=== PATIENT | female | born 1935 | race Caucasian/White ===

== ENCOUNTER 2022-03-19 16:27 | Emergency (ER) | payer MEDICARE ==
[~2022-03-19] VITALS: Ht 157.5 cm; Wt 54.0 kg
[~2022-03-19 16:27] MED LIST: ALBUTEROL SULF8.5 GM INH; ASPIRIN EC325 MG PO; ATORVASTATIN CA20 MG PO; B COMPLEX1 EACH PO; BREO ELLIPTA I1 EACH INH; COMBIVENT RESPIM4 GM INH; FLUCONAZOLE100 MG PO; LEVOFLOXACIN750 MG PO; LEVOTHYROXINE75 MCG PO; LEVOTHYROXINE88 MCG PO; MULTIVITAMINS1 EAC7 PO; PREDNISONE10 MG PO; PREDNISONE20 MG PO; PROVENTIL HFA6.7 GM INH; VITAMIN D310 MC4 PO; ZITHROMAX250 MG PO
[2022-03-19] MEDS ORDERED: LASIX20 MG PO (20:05)
--- NOTE | 2022-03-21 12:25 | EKG ---
[facility] [address] [place] [address] Signed Sinus tachycardia with occasional premature ventricular complexes Possible Left atrial enlargement Left anterior fascicular block Minimal voltage criteria for LVH, may be normal variant ( Somers product ) Lateral infarct , age undetermined Abnormal ECG No previous ECGs available Confirmed by Kailash Hall MD () on 03/21/2022 12:24:52 PM Electronically Signed By: KAILASH HALL MD 03/21/22 1225 PATIENT NAME: JACQUES CUBA Electrocardiogram DATE OF : [birth year] PHYSICIAN: KAILASH HALL MD REPORT #: [id number] REPORT IS CONFIDENTIAL AND NOT TO BE RELEASED WITHOUT AUTHORIZATION
== END 2022-03-19 20:20 | disposition home or self-care (01) ==
LOC: ED 16:27
DX: I50.9 Heart failure, unspecified (principal); J44.9 Chronic obstructive pulmonary disease, unspecified; F17.200 Nicotine dependence, unspecified, uncomplicated; Z79.899 Other long term (current) drug therapy; Z79.82 Long term (current) use of aspirin
CPT/HCPCS: 36415; 71045; 80053; 83735; 83880; 84484; 85025; 93005; 93010; 96374; 99284-25; J1940

== ENCOUNTER 2023-01-07 10:54 | Emergency (ER) | payer MEDICARE ==
[~2023-01-07 10:54] MED LIST changes: +LASIX20 MG PO
[2023-01-07 12:03] LABS: BASOPHILS 0.2 % (0-2); BILIRUBIN, URINE POSITIVE (negative); BLOOD/HGB, URINE TRACE-I (Negative); EOSINOPHILS 0.2 % (0-6); HEMATOCRIT 42.8 % (35.0-50.0); HEMOGLOBIN 14.4 g/dL (12.0-18.0); KETONE, URINE NEGATIVE (Negative); LEUK ESTERASE, URINE NEGATIVE (negative); LYMPHOCYTES 14.4 % (24-44); MCH 34.1 (27-36); MCHC 33.5 g/dl (30-36); MCV 101.7 fl (81-99); MONOCYTES 8.7 % (0-12); NEUTROPHILS 76.5 % (39-80); NITRITE, URINE NEGATIVE (negative); PH, URINE 5.5 (5-7); PLATELET COUNT 276 K/uL (140-440); RBC 4.21 M/ul (4.3-5.7); RDW 14.6 (10.5-15.0)
[2023-01-07 12:10] LABS: RED BLOOD CELLS, URINE 0-1 /hpf (0-5)
[2023-01-07 12:11] LABS: BACTERIA, URINE 2+ /hpf (negative); CASTS, URINE NONE SEEN \\lpf; COLLECTION TYPE, URINE CLEAN CATCH; CRYSTALS, URINE NONE SEEN (0-1+); EPITHELIAL CELLS, URINE SQUAMOUS 3+ /lpf (0-1+); REFLEX CULTURE, URINE No (No)
[2023-01-07 12:15] LABS: ALBUMIN 3.4 g/dL (3.4-5.0); ALBUMIN/GLOBULIN RATIO 0.92 (1.1-2.4); ANION GAP 9.3 (7-21); BILIRUBIN, TOTAL 0.9 ng/dL (0.2-1.0); BUN/CREATININE RATIO 8.33 (6.0-28.6); CREATININE, SERUM 0.96 mg/dL (0.55-1.02); POTASSIUM 4.3 mmol/L (3.5-5.1); PROTEIN, TOTAL 7.1 g/dL (6.4-8.2)
[2023-01-07 15:57] VITALS: BP 117/69
[2023-01-07 16:06] LABS: INR 1.03 (0.80-1.30)
--- NOTE | 2023-01-08 06:36 | EKG ---
[facility] [address] [facility] [place] [address] Signed Sinus rhythm with occasional premature ventricular complexes Left axis deviation Left ventricular hypertrophy with QRS widening ( Naman product , Romhilt-Rosado ) Nonspecific T wave abnormality premature ventricular complexes Left anterior fascicular block Abnormal ECG When compared with ECG of 19-MAR-2022 16:33, similar T wave abnormalities in precordial leads Confirmed by TORRES DAN MD ([id number]) on 01/08/2023 6:36:20 AM Electronically Signed By: TORRES DAN 01/08/23 0636 PATIENT NAME: JACQUES CUBA Electrocardiogram DATE OF : [birth year] PHYSICIAN: TORRES DAN REPORT #: [id number] REPORT IS CONFIDENTIAL AND NOT TO BE RELEASED WITHOUT AUTHORIZATION
== END 2023-01-07 15:59 | disposition home or self-care (01) ==
LOC: ED 10:54
PROVIDERS: Emergency Medicine
DX: R18.8 Other ascites (principal); I50.9 Heart failure, unspecified; J44.9 Chronic obstructive pulmonary disease, unspecified; E78.00 Pure hypercholesterolemia, unspecified; F17.200 Nicotine dependence, unspecified, uncomplicated; Z79.890 Hormone replacement therapy; Z79.899 Other long term (current) drug therapy; Z79.82 Long term (current) use of aspirin
CPT/HCPCS: 36415; 74177; 80053; 81001; 83690; 85025; 85610; 93005; 93010; 99284-25; Q9967

== ENCOUNTER 2023-01-11 09:06 | Emergency (ER) | payer MEDICARE ==
[~2023-01-11] VITALS: Ht 157.5 cm; Wt 52.9 kg
[2023-01-11] MEDS ORDERED: SPIRONOLACTONE50 MG PO (09:16)
[2023-01-11] MEDS ORDERED: METOPROLOL SUCC25 MG PO (09:17)
--- OUTSIDE RECORDS SUMMARY | 2023-01-11 09:18 | XMS ---
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 Roxie has no Care Guidelines for this patient. [facility] VISIT COUNT (12 MO.) [address] [facility] TOTAL 3 NOTE: Visits indicate total known visits. ED/[facility] VISIT TRACKING (12 MO.) 01/11/2023 09:[address] [facility] [place] TYPE: Emergency COMPLAINT: - SOB 01/07/2023 10:55 [facility] [place] TYPE: Emergency COMPLAINT: - BACK PAIN, L SHOULDER PAIN, BLOATING DIAGNOSES: - Abdominal distension (gaseous) - Chronic obstructive pulmonary disease, unspecified - Heart failure, unspecified - Hormone replacement therapy - halfway (current) use of aspirin - Nicotine dependence, unspecified, uncomplicated - Other ascites - Other skilled nursing (current) drug therapy - Pure hypercholesterolemia, unspecified 03/19/2022 16:28 [facility] [place] TYPE: Emergency COMPLAINT: - RT LEG SWELLING,POSS HIGH BP DIAGNOSES: - Chronic obstructive pulmonary disease, unspecified - Heart failure, unspecified - Localized swelling, mass and lump, right lower limb - termite exterminator helper (current) use of aspirin - Nicotine dependence, unspecified, uncomplicated - Other skilled nursing (current) drug therapy INPATIENT VISIT TRACKING (12 MO.) No inpatient visits to display in this time frame [email or web address]
[2023-01-11] MEDS ORDERED: K-TAB ER20 MEQ PO (12:00)
[2023-01-11] MEDS ORDERED: LASIX20 MG PO (12:00)
[2023-01-11 12:16] VITALS: BP 111/65
[2023-01-11 12:51] LABS: APPEARANCE, BODY FLUID PALE YELLOW; SOURCE, BODY FLUID PERITONEAL
[2023-01-11 12:55] LABS: MONONUCLEAR CELLS, BODY FLUID 49; PMNS, BODY FLUID 51
== END 2023-01-11 12:17 | disposition home or self-care (01) ==
LOC: ED 09:06
PROVIDERS: Emergency Medicine
DX: R18.8 Other ascites (principal); I50.9 Heart failure, unspecified; J44.9 Chronic obstructive pulmonary disease, unspecified; F17.200 Nicotine dependence, unspecified, uncomplicated; Z79.890 Hormone replacement therapy; Z79.899 Other long term (current) drug therapy
CPT/HCPCS: 49083; 89051

== ENCOUNTER 2023-11-08 17:19 | Emergency (ER) | payer MEDICARE ==
[~2023-11-08] VITALS: Ht 157.5 cm; Wt 55.4 kg
[~2023-11-08 17:19] MED LIST changes: +ACETAMINOPHEN500 MG PO; +ATIVAN0.5 MG PO; +IBUPROFEN600 MG PO; +K-TAB ER20 MEQ PO; +METOPROLOL SUCC25 MG PO; +ONDANSETRON ODT4 MG PO; +OXYCODON-ACETA1 EAC2 PO; +SPIRONOLACTONE50 MG PO
[2023-11-08] MEDS ORDERED: DIPHTH,PERTUSS(ACELL),TET VAC 0.5 ML SYRINGE IM ONE (17:30)
[2023-11-08] MEDS ORDERED: fentaNYL citrate 100 MCG/2 ML VIAL IV PRN (17:30)
[2023-11-08 17:33] LABS: BASOPHILS 0.4 % (0-2); EOSINOPHILS 0.4 % (0-6); HEMATOCRIT 25.3 % (35.0-50.0); HEMOGLOBIN 8.6 g/dL (12.0-18.0); LYMPHOCYTES 44.9 % (24-44); MCH 41.6 (27-36); MCV 122.3 fl (81-99); MONOCYTES 9.5 % (0-12); NEUTROPHILS 44.8 % (39-80); PLATELET COUNT 176 K/uL (140-440); RBC 2.07 M/ul (4.3-5.7); RDW 20.8 (10.5-15.0)
[2023-11-08 17:49] LABS: ALBUMIN 3.6 g/dL (3.4-5.0); ALBUMIN/GLOBULIN RATIO 1.29 (1.1-2.4); ALCOHOL, MEDICAL <3 ng/dL (<3); ALKALINE PHOSPHATASE 89 U/L (46-116); ALT (SGPT) 18 U/L (14-59); ANION GAP 10.5 (7-21); AST (SGOT) 17 U/L (15-37); BILIRUBIN, TOTAL 0.8 ng/dL (0.2-1.0); CARBON DIOXIDE 31 mmol/L (21-32); CHLORIDE 100 mmol/L (98-107); CREATININE, SERUM 1.47 mg/dL (0.55-1.02); GLOMERULAR FILTRATION RATE,EST 34 mL/min (>60); POTASSIUM 4.5 mmol/L (3.5-5.1); PROTEIN, TOTAL 6.4 g/dL (6.4-8.2); UREA NITROGEN 20 mg/dL (7-18)
[2023-11-08 18:02] LABS: SMEAR REVIEW BLOOD SEE COMMENTS
[2023-11-08] MEDS ORDERED: SODIUM CHLORIDE 0.9% 500 ML IV PRN ×2 (18:45→20:30)
[2023-11-08] MEDS ORDERED: Ropivacaine HCl 0.5% 30 ML VIAL ONE (21:17)
[2023-11-08] MEDS ORDERED: DEXAMETHASONE SOD PHOS 4 MG/ML VIAL ONE (21:17)
[2023-11-08] MEDS ORDERED: LIDOCAINE HCL 2% 5 ML SDV ONE (21:17)
[2023-11-08] MEDS ORDERED: SODIUM CHLORIDE 0.9% 20 ML IV ONE (21:17)
[2023-11-08 22:10] VITALS: BP 101/48
--- NOTE | 2023-11-09 21:47 | EKG ---
[facility] [address] [facility] [place] [address] Signed Normal sinus rhythm Left axis deviation Nonspecific intraventricular block Minimal voltage criteria for LVH, may be normal variant ( [place] product ) Nonspecific T wave abnormality Abnormal ECG When compared with ECG of 07-JAN-2023 11:55, premature ventricular complexes are no longer present Nonspecific T wave abnormality now evident in Inferior leads Confirmed by Kailash Hall MD () on 11/09/2023 9:47:35 PM Electronically Signed By: KAILASH HALL MD 11/09/23 2147 PATIENT NAME: JACQUES CUBA Electrocardiogram DATE OF : [birth year] PHYSICIAN: KAILASH HALL MD REPORT #: [id number] REPORT IS CONFIDENTIAL AND NOT TO BE RELEASED WITHOUT AUTHORIZATION
== END 2023-11-08 22:10 | disposition short-term general hospital (02) ==
LOC: ED 17:19
PROVIDERS: Emergency Medicine
DX: S72.142A Displaced intertrochanteric fracture of left femur, initial encounter for closed fracture (principal); W18.30XA Fall on same level, unspecified, initial encounter; I50.9 Heart failure, unspecified; D53.1 Other megaloblastic anemias, not elsewhere classified; J44.9 Chronic obstructive pulmonary disease, unspecified; F17.200 Nicotine dependence, unspecified, uncomplicated; Z88.8 Allergy status to other drugs, medicaments and biological substances; Z79.899 Other long term (current) drug therapy; Z79.890 Hormone replacement therapy
CPT/HCPCS: 71045; 73502; 80053; 83880; 84484; 85025; 85060; 90471; 90715; 93005; 93010; 96374; 96376; 99285-25; G0480; J1100; J2001; J2795; J3010; J7040

== ENCOUNTER 2023-12-12 14:05 | Inpatient (IN) | payer MEDICARE ==
[~2023-12-12] VITALS: Ht 157.5 cm; Wt 69.2 kg
[2023-12-12] VITALS (11 sets, daily range): BP systolic 73–107; BP diastolic 33–50
[2023-12-12] MEDS ORDERED: NITROGLYCERIN 0.4 MG SUBL SL PRN (16:15)
[2023-12-12] MEDS ORDERED: ASPIRIN 81 MG CHEW PO ONE (16:15)
[2023-12-12 16:25] LABS: BASOPHILS 0.5 % (0-2); EOSINOPHILS 0.3 % (0-6); HEMATOCRIT 33.2 % (35.0-50.0); HEMOGLOBIN 11.3 g/dL (12.0-18.0); LYMPHOCYTES 10.2 % (24-44); MCH 38.5 (27-36); MCHC 33.9 g/dl (30-36); MCV 113.6 fl (81-99); MONOCYTES 9.2 % (0-12); NEUTROPHILS 79.8 % (39-80); PLATELET COUNT 216 K/uL (140-440); RBC 2.92 M/ul (4.3-5.7); RDW 28.3 (10.5-15.0)
[2023-12-12] MEDS ORDERED: ENTRESTO 24 MG1 EACH PO (16:31)
[2023-12-12] MEDS ORDERED: LYNPARZA100 MG PO (16:32)
[2023-12-12 16:47] LABS: ALBUMIN 3.3 g/dL (3.4-5.0); ALBUMIN/GLOBULIN RATIO 0.94 (1.1-2.4); ANION GAP 6.7 (7-21); BILIRUBIN, TOTAL 0.8 ng/dL (0.2-1.0); BUN/CREATININE RATIO 15.2 (6.0-28.6); CREATININE, SERUM 1.25 mg/dL (0.55-1.02); MAGNESIUM 1.6 mg/dL (1.8-2.4); POTASSIUM 4.7 mmol/L (3.5-5.1); PROTEIN, TOTAL 6.8 g/dL (6.4-8.2)
[2023-12-12] MEDS ORDERED: FUROSEMIDE 20 MG/2 ML VIAL IV ONE ×2 (17:30)
[2023-12-12] MEDS ORDERED: MAGNESIUM SULFATE 2 GM/50 ML BAG IV ONE (17:30)
[2023-12-12] MEDS ORDERED: ACETAMINOPHEN 325 MG TAB PO PRN (19:30)
[2023-12-12] MEDS ORDERED: ondansetron HCL 4 MG/2 ML VIAL IV PRN (19:30)
[2023-12-12] MEDS ORDERED: Dobutamine HCl/D5w 250 ML IV SCH ×2 (19:45→20:00)
[2023-12-12] MEDS ORDERED: DOPamine 400 MG/D5W 250 ML IV SCH (20:00)
--- NOTE | 2023-12-12 20:20 | NUR ---
PATIENT ARRIVED TO CCU ROOM 128 VIA STRETCHER WITH THIS RN FROM THE ED. PATIENT MOVED TO BED WITH NO ISSUES.
[2023-12-12] MEDS ORDERED: HEParin SOD (PORCINE) 5,000 UNIT/ML SDV SUB-Q SCH (21:00)
[2023-12-12] MEDS ORDERED: MELATONIN 3 MG TAB PO PRN (21:00)
--- NOTE | 2023-12-12 21:00 | NUR ---
MD IN TO SEE PATIENT AND DISCUSS PLAN OF CARE. PER MD GIVE 40 LASIX AND HAVE DOBUTAMINE GTT READY AT THE BEDSIDE IF BLOOD PRESSURES DROP. PATIENT AWAKE AND ALERT. PATIETNS DAUGHTER LEFT FOR THE NIGHT. PUREWICK PLACED FOR I/O. PATIENT AGREEABLE TO PLAN OF CARE. PATIENT PROVIDED WITH WARM BLANKETS. ASSESSMENT COMPELTED. PATIENT HAS CALL LIGHT AND CALLS APPROPRIATELY. WHILE ANSWERING INTAKE QUESTIONS PATIENT SEEMS A LITTLE FORGETFUL. WILL PLACE BED ALARM FOR PATIENTS SAEFTY.
[2023-12-12] MEDS ORDERED: FUROSEMIDE 40 MG/4 ML VIAL IV ONE (21:15)
--- NOTE | 2023-12-12 22:00 | NUR ---
PATIENT NOTED TO HAVE SWELLING ALL THE WAY UP TO APPROX BELLY BUTTON AND UP THE BACK SIDE OF HIS BACK/HIPS. PATIENT HAS CRACKLES IN THE BASES OF HER LUNGS. MD IS AWARE AND ASSESSED PATIENT AT THE BEDSIDE ON ARRIVAL TO CCU.
--- NOTE | 2023-12-12 22:22 | NUR ---
PATIENT BLOOD PRESSURE DROPPED TO 70'S SYSTOLIC. STARTED DOBUTAMIN GTT AT THIS TIME PER EMAR ORDERS. WILL CALL MD AND NOTIFY THAT GTT WAS STARTED PER REQUEST.
[2023-12-12] MEDS ORDERED: NOREPINEPHRINE BITARTRATE 250 ML IV SCH (23:30)
[2023-12-12] MEDS ORDERED: NOREPINEPHRINE BITARTRATE 250 ML IV ONE (23:31)
--- NOTE | 2023-12-12 23:39 | NUR ---
NOTIFIED OF CONTINUED LOW BLOOD PRESSURES WITH DOBUTAMINE. NEW ORDER PLACED FOR LEVOPHED GTT. SEE EMAR FOR PARAMETERS. BURRIS CATHETER WAS PLACED D/T PATIENTS INABILITY TO URINATE. PATIENT TOLERATED WELL. PATIENT EASILY AWAKES WITH STAFF IN THE ROOM. PATIENT DID REPORT SOME DIZZINESS WHILE THIS RN WAS PREPARING LEVOPHED GTT. PLACED PATIENT FLAT IN BED AND PATIENT REPORTED IMPROVMENT IN SYMPTOMS. PATIENT RESTING NOW AT THIS TIME. THIS RN AT THE BEDSIDE WITH PATIENT.
[2023-12-13] VITALS (57 sets, daily range): BP systolic 74–124; BP diastolic 26–89
--- NOTE | 2023-12-13 00:45 | NUR ---
SEE FLOWSHEET FOR TITRATION OF MEDICATIONS. PATIENT REMAINS ALERT AND ORIENTED. PATIENT EASILY AWAKENS WHEN STAFF ENTER THE ROOM. PATIENT RESTING ON HER BACK AND DENIES ANY NEEDS AT THIS TIME. PATIENT HAS CALL LIGHT IN REACH. PATIENT PROVIDED WITH FRESH WATER AT THIS TIME.
--- NOTE | 2023-12-13 02:14 | NUR ---
THIS RN CONTINUING TO TITEATE GTTS PER EMAR. THIS RN IN TO CHECK URINE STATUS. PATIENT AWAKE AND ALERT AND REPORTS FEELING WELL. PATIENT HAD A DRINK OF WATER AND THEN LAID BACK IN BED. PATIENT HAS BURRIS CATHETER IN PLACE. PATIENT REPORTS PAIN IMPROVMENT IN HER NECK AT IV CENTRAL LINE SITE AFTER TYLENOL.
--- NOTE | 2023-12-13 04:16 | NUR ---
THIS RN IN O CHECK ON PATIENT. PATIENT OPENED EYES WHILE RN IN THE ROOM DOING CARES. INTAKE/OUTPUT ENTERED.
--- NOTE | 2023-12-13 05:01 | NUR ---
NEW BAGS OF MEDICATION HUNG AT THIS TIME. PATIENT REPOSITIONED WITH PILLOW SUPPORT FOR COMFORT. PATIENT VISITING WITH STAFF AT THIS TIME. PATIENTS EXTREMITIES ARE NOW WARM TO TOUCH. PATIENT REPORTS "MY FEET FEEL TIGHT". FRESH WATER AT THE BEDSIDE. CALL LIGHT IN REACH.
--- NOTE | 2023-12-13 05:15 | NUR ---
THIS RN IN TO DRAW LABS. PATIENT TOELRATED WELL. PATIENT DID BECOME DIZZY WITH MEDICATIONS BEING PAUSED FOR LAB DRAW. MEDICATIONS RESTARTED AND PATIENT HEAD OF BED LOWERED AND SYMPTOMS IMPROVED.
[2023-12-13 05:28] LABS: BASOPHILS 0.4 % (0-2); EOSINOPHILS 0.4 % (0-6); HEMATOCRIT 26.6 % (35.0-50.0); LYMPHOCYTES 16.3 % (24-44); MCH 38.2 (27-36); MCHC 33.7 g/dl (30-36); MCV 113.5 fl (81-99); MONOCYTES 12.1 % (0-12); NEUTROPHILS 70.8 % (39-80); PLATELET COUNT 187 K/uL (140-440); RBC 2.34 M/ul (4.3-5.7); RDW 28.4 (10.5-15.0)
[2023-12-13 05:46] LABS: ALBUMIN 2.5 g/dL (3.4-5.0); ALBUMIN/GLOBULIN RATIO 0.93 (1.1-2.4); ANION GAP 3.7 (7-21); BILIRUBIN, TOTAL 0.6 ng/dL (0.2-1.0); BUN/CREATININE RATIO 15.59 (6.0-28.6); CALCIUM 8.6 mg/dL (8.5-10.1); CREATININE, SERUM 1.09 mg/dL (0.55-1.02); MAGNESIUM 1.8 mg/dL (1.8-2.4); POTASSIUM 4.7 mmol/L (3.5-5.1); PROTEIN, TOTAL 5.2 g/dL (6.4-8.2)
[2023-12-13 05:52] LABS: SMEAR REVIEW BLOOD SEE COMMENTS
[2023-12-13] MEDS ORDERED: LEVOTHYROXINE SODIUM 112 MCG TAB PO SCH (07:00)
--- NOTE | 2023-12-13 07:30 | NUR ---
REPORT RECEIVED. PATIENT IS RESTING. IV LEVOPHED GTT AT 9MCG/MIN, DOBUTAMINE GTT AT 4 MCG/KG/MIN, BOTH INFUSING TO LIJ. BURRIS CATH IS PATENT WITH CLEAR YELLOW URINE NOTED. SKIN IS WARM AND DRY TO TOUCH. DENIES PAIN AT THIS TIME. DENIES SHORTNESS OF BREATH. O2 AT 3 L NC. O2 SAT 90.
--- NOTE | 2023-12-13 07:33 | NUR ---
UR CLINICAL REVIEW: 2 MN FOR [facility] INPT CRITERIA MEDICARE INPT 12/12/23 @ 1939 ORDER MATCHES REG NO AUTH REQUIRED PER MEDICARE GUIDELINES DISCHARGE TO HOME WHEN STABLE
--- NOTE | 2023-12-13 08:00 | NUR ---
SITTING UP IN BED FOR BREAKFAST. STATES SHE DOES FEEL HUNGRY. DENIES NAUSEA. TALKED WITH PATIENT ABOUT POC FOR THE DAY, PATIENT INDICATES UNDERSTANDING. PATIENT SAID THAT AT TIMES HER BRAIN FEELS FOGGY. SHE SAID THIS HAS BEEN HAPPENING AT HOME TOO. PATIENT SAID HER LEGS BEGAN TO SWELL APPROX 2 DAYS AGO. HER LEGS HAVE BEEN HURTING WHEN SHE GETS UP AND WALKS. SEE FLOWSHEET FOR TITRATIONS OF MEDICATIONS.
[2023-12-13] MEDS ORDERED: FUROSEMIDE 40 MG/4 ML VIAL IV SCH (09:00)
[2023-12-13] MEDS ORDERED: busPIRone HCL 5 MG TAB PO SCH (09:00)
--- NOTE | 2023-12-13 09:00 | NUR ---
ORDERS RECIEVED TO HOLD LASIX FOR NOW. WILL GIVE ALBUMIN ORDERED. ROUTINE MEDS GIVEN. TYLENOL GIVEN FOR GENERAL COMFORT AND NECK PAIN.
[2023-12-13] MEDS ORDERED: ALBUMIN HUMAN 25% 100 ML BTL IV ONE ×2 (09:15→12:45)
--- NOTE | 2023-12-13 09:20 | NUR ---
ECHO BEING DONE AT BEDSIDE. DAUGHTER IS IN ROOM.
--- NOTE | 2023-12-13 10:07 | NUR ---
RESTING AT THIS TIME. LEVOPHED GTT AT 14 MCG/MIN, DOBUTIMINE GTT AT 4 MCG/KG/MIN. BURRIS CATH PATENT. O2 AT 4 L NC.
[2023-12-13] MEDS ORDERED: PHARMACY RENAL DOSE ADJUSTMENT 1 DOSE MISC PO SCH (12:00)
--- NOTE | 2023-12-13 12:00 | NUR ---
ASSESSMENT UNCHANGED. FAMILY MEMBERS ARE IN ROOM. TEMP-99.2. NO CHANGES REGARDING LEVOPHED GTT AT 12 MCG/MIN OR DOBUTAMINE GTT AT 4 MCG/KG/MIN. FATUMA REMAINS PATENT.
--- NOTE | 2023-12-13 12:10 | NUR ---
Spoke with Luann, daughter Madie. Pt denies need and has been living with her daughter in [place]. She has a home in [place] and plans on selling. She plans on [place] [facility] [place] dc. She denies any needs. She uses a walker and has been able to walk. She c/o increased edema in feet and has been having bp issues. Daughters plan for [facility] on dc. I will fax her chart. Daughter states pt has already been evaluated by the internet cafe manager.
--- NOTE | 2023-12-13 12:36 | NUR ---
PT NOT AVAILABLE FOR VISIT. PROVIDED PRAYER.
[2023-12-13] MEDS ORDERED: FUROSEMIDE20 MG PO (13:03)
[2023-12-13] MEDS ORDERED: LEVOTHYROXINE112 MCG PO (13:56)
--- NOTE | 2023-12-13 14:10 | NUR ---
DR. VALDERRAMA UPDATED ON PATIENT CONDITION. ORDERS RECEIVED TO REPEAT ALBUMIN. VISTARIL 25 MG PO Q 4 HRS PRN ANXIETY ALSO ORDERED. MD IS AWARE OF PVC ACTIVITY AND HR. PATIENT STATES SHE DOES FEEL A LITTLE BETTER THAN SHE DID EARLIER.
[2023-12-13] MEDS ORDERED: hydrOXYzine pamoate 25 MG CAP PO PRN (14:30)
[2023-12-13] MEDS ORDERED: OLAPARIB PO SCH (14:30)
--- NOTE | 2023-12-13 15:50 | NUR ---
Called and spoke with Charisma from [facility]. She states pt will need to be reevaluated for placement. I will fax pts record now for update. Let them know pt is not ready for dc at this time.
[2023-12-13] MEDS ORDERED: VENTOLIN HFA18 GM INH (15:59)
[2023-12-13] MEDS ORDERED: POTASSIUM CHLO10 MEQ PO (15:59)
--- NOTE | 2023-12-13 15:59 | NUR ---
MED REC COMPLETE
--- NOTE | 2023-12-13 16:00 | NUR ---
ASSESSMENT DONE. CONTINUE TO TITRATE IV MEDICATIONS,
--- NOTE | 2023-12-13 19:30 | NUR ---
PATIENT ALERT AND ORIENTED, SHE IS SMILING AND VISITING WITH STAFF. CVP D/C.
--- NOTE | 2023-12-13 19:57 | NUR ---
PATIENT REPOSITIONED, REPORTS PAIN IS MILD AT LEFT HIP. ASSESSMENT COMPLETE.
[2023-12-13] MEDS ORDERED: ATORVASTATIN 20 MG TAB PO SCH (21:00)
--- NOTE | 2023-12-13 21:33 | NUR ---
PATIENT SITTING UP IN BED, ALERT AND ORIENTED, SHE REPORTS SHE HAS BEEN ABLE TO SLEEP, HS MEDICATION PASS COMPLETE, SHE ATE APPLESAUCE, TYLENOL PRN FOR LEFT HIP PAIN, SHE HAS NO FURTHER REQUESTS AT THIS TIME. CALL LIGHT IN REACH, TITRATED DOWN LEVOPHED DRIP TO 6MCG/MIN
--- NOTE | 2023-12-13 23:07 | NUR ---
PATIENT RESTING IN BED EYES CLOSED, RR 19/MIN, ON ANIMAL RESEARCHER, V/S STABLE. TITRATED LEVOPHED DRIP TO 5 MCG/MIN., EMPTIED BURRIS CATH ABG FOR TOTAL OF 800ML TOTAL AT THIS TIME FOR THIS SHIFT.
--- NOTE | 2023-12-13 23:30 | NUR ---
PATIENT ALERT AND ORIENTED, REPOSITIONED IN BED, REPORTS NO NEEDS AT THIS TIME.
[2023-12-14] VITALS (61 sets, daily range): BP systolic 76–136; BP diastolic 34–93
--- NOTE | 2023-12-14 05:19 | NUR ---
PATIENT ALERT TO RN AT BEDSIDE, PATIENT REPOSITIONED, LEVOPHED PAUSED, WHITE AND BROWN LINE FLUSHED WITH 20ML NS AFTER ASSESS BLOOD RETURN IN BOTH LINES, BLOOD DRAWN FROM WHITE LINE, WASTED 5ML, THEN DRAW FOR LAB. THEN FLUSHED 20ML NS PULSATING PRESSURE. PATIENT REPORTS NO NEEDS AT THIS TIME, SHE ENDORSES THAT SHE HAS SLEPT WELL OVER NIGHT. AM ASSESSMENT COMPLETE, NONEW CONCERNS FROM PREVIOUS ASSESSMENTS.
[2023-12-14 05:28] LABS: ANION GAP 2.6 (7-21); BUN/CREATININE RATIO 16.47 (6.0-28.6); CALCIUM 8.9 mg/dL (8.5-10.1); CREATININE, SERUM 0.85 mg/dL (0.55-1.02); MAGNESIUM 1.8 mg/dL (1.8-2.4); POTASSIUM 4.6 mmol/L (3.5-5.1)
--- NOTE | 2023-12-14 07:25 | NUR ---
REPORT RECEIVED FROM CONCESSION CASHIER RN. PATIENT RESTING IN BED. BEDSIDE SKIN ASSESSMENT COMPLETED WITH CONCESSION CASHIER RN. NOTED DECREASED EDEMA TO BILATERAL LOWER EXTREMITIES. PATIENT VSS. DENEIS NEEDS AT THIS TIME. CALL LIGHT WITHIN REACH.
--- NOTE | 2023-12-14 08:30 | NUR ---
Pt was discussed in the 8:30 meeting. REquested if this pt can have an eval from PT. She cannot be accept to the [facility] in [place] if she is over a 1 person assist. Per pts BP are not steady enough for a PT assessment.
--- NOTE | 2023-12-14 08:34 | NUR ---
PATIENT RESTING IN BED. VSS. ALERT AND ORIENTED X4, LUNG SOUNDS WITH NOTED WHEEZING IN UPPER LOBES AND CRACKLES IN THE BASES. PATIENT ABLE TO PRODUCE SPUTUM WHILE COUGHING. IS INTRODUCED TO PATIENT. SAO2 WNL WHILE ON 3L OXYGEN. NO C/O SOB, DENIES CHEST PAIN, HEADACHE OR DIZZYNESS. C/O FEELING THE URGE TO VOID, PATIENT EDUCATED ABOUT BURRIS CATHERTER AND SIDE EFFECTS OF HAVING CATHERTER IN BLADDER. PATIENT ABLE TO TOLLERATE SENSATION AT THIS TIME. NOTED SWELLING TO BILATERAL LOWER EXTERMITIES CONTINUES. 3+ NOTED IN LOWER LEGS AND ANKLES/FEET. SWELLING IMPROVED IN HIPS AND UPPER THIGHS. SWELLING IMPROVED IN UPPER EXTERMITIES. PEDAL PULSES PALPABLE AND BUT FAINT, RADIAL PULSES PALPABLE. PATIENT REPOSITIONED IN BED. HOB ELEVATED, SITTING UPRIGHT EATING BREAKFAST. NO FURTHER NEEDS AT THIS TIME. CALL LIGHT WITHIN REACH.
[2023-12-14] MEDS ORDERED: POLYETHYLENE GLYCOL 3350 1 PACKET PO SCH (09:00)
[2023-12-14] MEDS ORDERED: FUROSEMIDE 20 MG/2 ML VIAL IV SCH (09:00)
[2023-12-14] MEDS ORDERED: acetaZOLAMIDE 250 MG TAB PO SCH (09:00)
[2023-12-14] MEDS ORDERED: SENNOSIDES/DOCUSATE 1 EA TAB PO SCH (09:00)
--- NOTE | 2023-12-14 09:09 | NUR ---
BP'S SOFT. MD IN ROOM. DISCUSSED POC. LEVO GTT STARTED AGAIN. WILL TITRATE ACCORDINGLY TO MAINTAIN MAP OF 65. ORDERS TO ADMINSTER DIURETICS ONCE MAP GOAL IS MET.
[2023-12-14] MEDS ORDERED: ALBUMIN HUMAN 25% 100 ML BTL IV ONE (09:30)
--- NOTE | 2023-12-14 10:10 | NUR ---
PATIENT GIVEN BED BATH, NEW LINENS AND GOWN. ORAL CARE PROVIDED. PATIENT REQUESTING HER RINGS BE TAKEN OFF. 2 RINGS TAKEN OFF OF PATIENT AND PLACED IN A SPECIMEN CUP INTO HER PURSE. PATIENT'S DAUGHTER TO TAKE RINGS HOME WHEN SHE ARRIVES. PATIENT WAS ABLE TO ROLL IN BED DURING BED BATH. TOLLERATED MOVEMENT WELL. SPO2 STAYED WITHIN NORMAL LIMITS. PATIENT WITH NO C/O SOB OR CHEST DISCOMFORT. DENIES ANY VISUAL CHANGES OR HEADACHE. JAMES CARE PROVIDED. BURRIS CATHERTER DRAINAING YELLOW URINE WITH NO ISSUES OR CONCERNS.
--- NOTE | 2023-12-14 11:00 | NUR ---
Spoke with Pat. She denies needs. Let her know I have sent her chart to [facility]. She will need an assessment by PT to show she is no more than a 1 person assist. We are not able to complete this due to her BP. Pt states understanding.
--- NOTE | 2023-12-14 11:19 | NUR ---
PATIENT RESTING IN BED WITH EYES CLOSED. RESPIRATIONS EVEN AND UNLABORED. LEVO GTT TIRTATION CONTINUES TO MAINTAIN MAP. NO SYMPTOMS OF DISTRESS AT THIS TIME. CALL LIGHT WITHIN REACH.
--- NOTE | 2023-12-14 12:45 | NUR ---
PATIENT RESTING IN BED. DAUGHTER AND FAMILY FIREND AT BEDSIDE. NOTED TRIGEMINY HEART RYTHYM AT TIMES. BP REMAINS STABLE WITH LEVO GTT RUNNING AT 1 MCG/MIN.
--- NOTE | 2023-12-14 13:30 | NUR ---
PATIENT RESTING IN BED WITH EYES CLOSED. RESPIRATIONS EVEN AND UNLABORED. LEVO GTT REMAINS RUNNING. CALL LIGHT WITHIN REACH.
--- NOTE | 2023-12-14 14:45 | NUR ---
LEVO GTT INCREASED. FAMILY AT BEDSIDE. PATIENT WITH NO S/SX OF DISTRESS.
--- NOTE | 2023-12-14 15:30 | NUR ---
Notified by staff, was discussing dc of this pt tomorrow. Texted Dr and updated pt does not have placement at this time.
--- NOTE | 2023-12-14 16:17 | NUR ---
PATIENT REPOSITIONED IN BED, AFEBRILE. VSS. DENIES ANY FEELINGS OF SOB, CHEST PAIN OR FEELING FOGGY. EDEMA TO BILATERAL LOWER EXTERMITIES CONTINUES TO IMPROVE. URINARY OUTPUT CONTINUES TO REMAINS GOOD. NOTED EDEMA TO HIPS STILL CONTINUES HOWEVER SLIGHTLY IMPROVED.
[2023-12-14] MEDS ORDERED: NITROFURANTOIN MONOHYD MACROCR 100 MG CAP PO SCH (17:00)
--- NOTE | 2023-12-14 17:08 | NUR ---
CALL LIGHT ANSWERED. PATIENT NEEDING TO HAVE A BM. PATIENT SPECIFICALLY REQUESTING TO USE TOILET. RN UNCOMFORTABLE WITH AMBULATION TO BATHROOM. PATIENT OKAY WITH USING BSC. TRANSFERED TO [facility] WITH 2 PA ASSIST. PATIENT TOLLEATED WELL. HR ELEVATED TO 111. DENIED ANY CHEST PAIN, DIZZYNESS OR HEADACHES. NO NOTED SOB. PATIENT TRANSFERED BACK TO BED. CALL LIGHT WITHIN REACH.
--- NOTE | 2023-12-14 17:40 | NUR ---
LEVO GTT TURNED OFF. MAP GOAL CONSISTENCY MET.
--- NOTE | 2023-12-14 18:40 | NUR ---
PATIENT WITH NOTED OXYGEN DESAT. NC OUT OF NOSE. OXYGEN REPLACED. PATIENT REOVERED WELL. PATIENT REMAINS ON 2L O2 VIA NC. CALL LIGHT WITHIN REACH, NO FURTHER NEEDS AT THIS TIME.
--- NOTE | 2023-12-14 19:07 | NUR ---
BP 79/42 (54). BP WILL GO SOFT WHEN PATIENT IS SLEEPING. LEVO GTT RESTARTED AT 2MCG/MIN.
--- NOTE | 2023-12-14 19:40 | NUR ---
PATIENT ALERT AND ORIENTED, ASSESSMENT COMPLETE, SHE REPORTS NO NEEDS AT THIS TIME.
--- NOTE | 2023-12-14 21:10 | NUR ---
ROUNDING ON PATIENT WITH HS MEDICATIONS, SHE IS ALERT AND ORIENTED, PATIENT TOOK PILLS WELL WITH APPLESAUCE, ADMINISTERED TYLENOL PRN FOR LEFT HIP PAIN 04/23. NO NEW CONCERNS AT THIS TIME.
--- NOTE | 2023-12-14 21:30 | NUR ---
PATIENT ASKED IF SHE CAN SLEEP WHILE WAITING FOR IJ CENTRAL LINE DRESSING CHANGE, THIS RN SAID, "YES" OF COURSE.
[2023-12-15] VITALS (17 sets, daily range): BP systolic 93–123; BP diastolic 38–65
--- NOTE | 2023-12-15 00:03 | NUR ---
PATIENT RESTING IN BED, EYES CLOSED RESP, REGULAR AT 20/MIN, NO DISTRESS NOTED.
[2023-12-15 05:22] LABS: BASOPHILS 0.6 % (0-2); EOSINOPHILS 0.6 % (0-6); HEMATOCRIT 25.5 % (35.0-50.0); HEMOGLOBIN 8.4 g/dL (12.0-18.0); LYMPHOCYTES 20.4 % (24-44); MCH 38.1 (27-36); MCHC 33.1 g/dl (30-36); MONOCYTES 10.7 % (0-12); NEUTROPHILS 67.7 % (39-80); PLATELET COUNT 168 K/uL (140-440); RBC 2.21 M/ul (4.3-5.7); RDW 27.8 (10.5-15.0)
--- NOTE | 2023-12-15 05:22 | NUR ---
PATIENT ALERT TO RN AT BEDSIDE. SHE REPORTS NO NEEDS AT THIS TIME, DRAW AM LABS OFF IJ CENTRAL LINE. AM ASSESSMENT COMPLETE, NO NEW CONCERNS. 1400ML URINE OUT OVER NIGHT. CENTRAL LINE IS INTACT DRESSING IS LOOSE AT POSTERIOR AREA OF DRESSING WHERE THE LINES EXIT. ALL LINES HAVE BLOOD RETURN.
[2023-12-15 05:36] LABS: SMEAR REVIEW BLOOD SEE COMMENTS
[2023-12-15 05:46] LABS: ANION GAP 2.7 (7-21); BUN/CREATININE RATIO 16.19 (6.0-28.6); CALCIUM 8.8 mg/dL (8.5-10.1); CREATININE, SERUM 1.05 mg/dL (0.55-1.02); POTASSIUM 4.7 mmol/L (3.5-5.1)
[2023-12-15] MEDS ORDERED: FOLIC ACID 1 MG TAB PO SCH (08:07)
--- NOTE | 2023-12-15 08:53 | NUR ---
Irais maldonado dc'bettina at this time after discussing with MD, patient stable with BP 113/73 (83).
[2023-12-15] MEDS ORDERED: CYANOCOBALAMIN 1,000 MCG TAB PO SCH (09:00)
--- NOTE | 2023-12-15 09:03 | NUR ---
PATIENT IS SITTING UPRIGHT IN THE BED WITH HER DAUGHTER SITTING AT THE BEDSIDE. PATIENT IS EATING BREAKFAST. MORNING MEDICATIONS ADMINISTERED PER THE EMAR. VITAL SIGNS TAKEN AND DOCUMENTED IN THE CHART. PATIENT GIVEN A FRESH CUP OF ICE WATER. PATIENT AND FAMILY STATED NO FURTHER NEEDS AT THIS TIME. CALL LIGHT AND PERSONAL BELONGINGS ARE WITHIN REACH.
--- NOTE | 2023-12-15 09:41 | NUR ---
VISITED DURING SPIRITUAL CARE ROUNDS. PT APPEARED TO BE SLEEPING. DID NOT DISTURB. PROVIDED PRAYER.
[2023-12-15] MEDS ORDERED: FLUDROCORTISONE ACETATE 0.1 MG TAB PO SCH (09:45)
--- NOTE | 2023-12-15 09:49 | NUR ---
New orders for PO medication received from MD, verified with pharmacy, entered. Reinitiated norepi gtt with orders from MD after pt BP 80/40 until new medication bridged.
--- NOTE | 2023-12-15 10:20 | NUR ---
Administered scheduled medication. Patient A+O. Remains on levo gtt at this time. BP stable. O2 titrated off at this time for RA trial as patient spo2 98% on 2LNC. 650 pink tinged urine emptied from toure. Assessment complete, patient continues to have 2+ pitting edema in BLE but improved from previous reports.
--- NOTE | 2023-12-15 11:50 | NUR ---
Spoke with Luann and her daughter, Gillian. Pt has changed her mind and wouldlike to remain in [place]. Would like to be placed at [facility]. I texted [facility] and they do have beds open. Ramos will talk in [facility] and tour in an hour or so. Pt was able to work with PT and was able to walk 50 ft. Chart was faxed to [facility] by Cassi IBANEZ. I called [facility] as she was requesting pts name. Gave the name and history. Per [facility], if they accept her, pt could move in tomorrow if medically stable. If not, then Tuesday.
--- NOTE | 2023-12-15 12:30 | NUR ---
Patient up with physical therapy, able to transfer to chair for lunch. Remains on norepi gtt. VSS.
--- NOTE | 2023-12-15 12:58 | NUR ---
REFERRAL FAXED TO [facility]
--- NOTE | 2023-12-15 13:10 | NUR ---
CHG WIPEDOWN COMPLETE AT THIS TIME, PATIENT TOLERATED WELL. BED LINENS CHANGED. SHOWER CAP COMPLETE. PATIENT AMBULATED BACK TO BED WITH A FWW AND SBA. PATIENT TOLERATED WELL. PATIENT IS STATES SHE IS COMFORTABLE AND RECONNECTED TO THE MONITOR. PATIENT STATED NO FURTHER NEEDS AT THIS TIME. CALL LIGHT AND PERSONAL BELONGINGS ARE WITHIN REACH. PATIENT FAMILY NOTIFIED OF PATIENT BACK IN BED. FAMILY RETURNED TO THE PATIENTS BEDSIDE.
--- NOTE | 2023-12-15 14:37 | EKG ---
[facility] [address] [facility] [place] [id number] Signed Sinus rhythm with occasional premature ventricular complexes Nonspecific intraventricular block Minimal voltage criteria for LVH, may be normal variant ( Naman product ) Possible Lateral infarct , age undetermined Abnormal ECG When compared with ECG of 08-NOV-2023 20:25, premature ventricular complexes are now present Questionable change in QRS axis Nonspecific T wave abnormality, improved in Inferior leads T wave inversion no longer evident in Lateral leads Confirmed by Aren Valderrama MD ([id number]) on 12/15/2023 2:37:23 PM Electronically Signed By: AREN VALDERRAMA DO 12/15/23 1437 PATIENT NAME: JACQUES CUBA Electrocardiogram DATE OF : [birth year] PHYSICIAN: AREN VALDERRAMA DO REPORT #: [id number] REPORT IS CONFIDENTIAL AND NOT TO BE RELEASED WITHOUT AUTHORIZATION
--- NOTE | 2023-12-15 14:47 | NUR ---
CENTRAL LINE IJ DRESSING CHANGE COMPLETE WITH SUKHJINDER SANTOS. PATIENT TOLERATED WELL WITH NO COMPLAINTS OF PAIN. PATIENT STATED NO FURTHER NEEDS AT THIS TIME, CALL LIGHT AND PERSONAL BELONGINGS ARE WITHIN REACH. RN NOTIFIED FAMILY THAT THE DRESSING CHANGE IS COMPLETE. THREE FAMILY MEMBERS ARE IN THE ROOM AT BEDSIDE NOW.
--- NOTE | 2023-12-15 16:01 | NUR ---
Patient assessment complete, new bag norepi gtt hung, see flowsheet for titration. Updated Dr Tee on patient status, no new orders at this time as patient is stable and plan of care appropriate. Pt has no needs at this time. Lights dimmed for rest time after visitors left. Call light and personal belongings in reach.
--- NOTE | 2023-12-15 18:41 | NUR ---
Titrated patient norepi gtt to 4 as MAP trending down below 60. VSS. IV pump cleared and toure drained, patient states comfortable at this time and has no needs. water refreshed, call light in reach
--- NOTE | 2023-12-15 19:45 | NUR ---
PATIENT RESTING IN BED ALERT TO THIS RN AT BEDSIDE. SHE REPORTS NO PAIN AT THIS TIME, BUT WOULD LIKE THE TYLENOL WITH NIGHT TIME MEDICATIONS. ASSESSMENT COMPLETE. PATIENT CONTINUES TO HAVE 2+ EDEMA BLE, SHE IS ABLE TO ASSIST IN REPOSITIONING IN BED. SHE REPORTS SHE FEELS GOOD, BUT IS TIRED TONIGHT.
--- NOTE | 2023-12-15 21:15 | NUR ---
PATIENT RESTING IN BED EYES CLOSED, ALERT OT HER NAME FOR HS MEDICATION PASS. APPLESAUCE PROVIDED WITH PO MEDICATIONS, IN LIGHT OF HER EXTRA LARGE BM YESTURDAY SHE IS NOT INTERESTED IN TAKING MORE BOWEL MEDICATIONS TONIGHT. FRESH WATER PROVIDED, NO OTHER REQUESTS AT THIS TIME.
[2023-12-16] VITALS (30 sets, daily range): BP systolic 73–110; BP diastolic 36–59
[2023-12-16 05:13] LABS: BASOPHILS 0.3 % (0-2); EOSINOPHILS 0.6 % (0-6); HEMATOCRIT 26.5 % (35.0-50.0); HEMOGLOBIN 8.8 g/dL (12.0-18.0); LYMPHOCYTES 18.6 % (24-44); MCH 38.2 (27-36); MCV 115.7 fl (81-99); MONOCYTES 10.3 % (0-12); NEUTROPHILS 70.2 % (39-80); PLATELET COUNT 170 K/uL (140-440); RBC 2.29 M/ul (4.3-5.7); RDW 27.2 (10.5-15.0)
[2023-12-16 05:24] LABS: ANION GAP 1.5 (7-21); CALCIUM 8.5 mg/dL (8.5-10.1); MAGNESIUM 1.5 mg/dL (1.8-2.4); POTASSIUM 4.5 mmol/L (3.5-5.1)
[2023-12-16 05:25] LABS: SMEAR REVIEW BLOOD SEE COMMENTS
--- NOTE | 2023-12-16 07:45 | NUR ---
REPORT RECIEVED FROM RISK TECH RN. PATIENT LEVOPHED GTT STOPPED AT 0600. PATIENT RESTING IN BED. PATIENT CALLS NEEDED. PATIENT ON BASELINE 2L NC OXYGEN. PATIENT HAS BURRIS CATHETER PRESENT. CENTRAL LINE IN LEFT IJ. PATIENT WILL HAVE A METING WITH HER DAUGHTER AND SUMMER FROM [facility] THIS AM.
--- NOTE | 2023-12-16 08:20 | NUR ---
HANNAH RN IN TO DO ROXANA RUELAS. PATIENT CURRENTLY OFF LEVOPHED GTT STILL. BREAKFAST PROVIDED. PATIENT SITING UP IN BED AWAITING SUMMER FROM [facility] TO ARRIVE. PATIENTS DAUGHTER A TTHE BEDSIDE.
--- NOTE | 2023-12-16 08:23 | NUR ---
Spoke with Madie and Pat. Riddle for [facility] in to evaluate pt for placement. Per RN pt will most likely have gtt restarted shortly for low b/p.
[2023-12-16] MEDS ORDERED: MAGNESIUM SULFATE 2 GM/50 ML BAG IV SCH (08:30)
--- NOTE | 2023-12-16 08:45 | NUR ---
LEVOPHED GTT RESTARTED AT THIS TIME D/T LOW BLOOD PRESSURES. PATIENT VISITING WITH SUMMER FROM [facility]. BREAKFAST FINISHED A TTHIS TIME.
--- NOTE | 2023-12-16 09:20 | NUR ---
VISITED DURING SPIRITUAL CARE ROUNDS. PT SUPPORTED BY DAUGHTER IN ROOM. BOTH IN GOOD SPIRITS, EXPRESSED OPTIMISM, SATISFACTION WITH COURSE OF ACTION. WIRE WINDING MACHINE OPERATOR PROVIDED SUPPORTIVE PRESENCE, HOSPITALITY, PRAYER, FACILITATED INTERACTION WITH THERAPY DOG. PT AND MOTHER EXPRESSED GRATITUDE.
--- NOTE | 2023-12-16 10:21 | NUR ---
THIS RN ASSISTED PHYSICAL THERAPY TO AMBULATE PATIENT IN THE HALLWAY. PATIENT TOELRATED WELL. PATIENT ON MONITOR, IV, AND OXYGEN. PATIENT BACK TO CHAIR AND NOW SITTING UP IN CHAIR AT THIS TIME. BEDSIDE TABLE PROVIDED WITH FRESH WATER. CALL ESTHER SIMMONS. WARM BLANKET APPLIED TO PATIENTS LAP. NO OTHER REQUESTS AT THIS TIME. BLINDS OPEN AND TV ON.
--- NOTE | 2023-12-16 11:21 | NUR ---
PATIENT SITTING UP IN THE CHAIR. LINEN ON BED CHANGED AT THIS TIME. PATIENT ROOM CLEANED. PATIENTS FAMILY GONE AT THIS TIME. PATIENT DENEIS ANY NEEDS. CALL LIGHT IN REACH.
--- NOTE | 2023-12-16 12:17 | NUR ---
PATIENT UP IN THE CHAIR. I/O DONE. ASSESSMENT DONE. PATIENT FINISHED LUNCH AND TOELRATED WELL. PATIENT DENIES ANY NEEDS AT THIS TIME. CALL LIGHT IN REACH.
--- NOTE | 2023-12-16 13:50 | NUR ---
Update from Dr. Tee, pt will not dc until Tuesday.
--- NOTE | 2023-12-16 14:10 | NUR ---
PATIENT SITTING UP IN THE CHAIR. PATIENT REMAINS ON LEVOPHED GTT. PATIENT UP IN CHAIR AT THIS TIME. CALL LIGHT IN REACH. BELONGINGS ON THE BEDSIDE TABLE.
--- NOTE | 2023-12-16 14:19 | NUR ---
Progress note faxed to Summer at [facility] with update for possible dc on Tuesday.
--- NOTE | 2023-12-16 15:22 | NUR ---
IN TO GIVE PATIENT A BED BATH. PATIENT CLEANED WITH CHLORHEXIDINE WIPES, BURRIS CATH WIPES UTILIZED. PATIENTS GOWN CHANGED. PATIENT UP AND TRANSFERED TO BED WITH WALKER. PATIENT TOLERATED WELL. PATIENTS DAUGHTER IN AT THE BEDSIDE AND UPDATED ON PLAN OF CARE. PATIENT NOW RESTING IN BED VISITING FAMILY.
--- NOTE | 2023-12-16 17:30 | NUR ---
THIS RN IN TO BRING PATIENT DINNER AND DO INTAKE AND OUTPUTS. PATIENT SITTING UP IN BED EATING DINNER. PATIENTS DAUGHTER LEFT. NO OTHER NEEDS A TTHIS TIME. FRESH WATER PROVIDED AND CALL LIGHT IN REACH.
--- NOTE | 2023-12-16 18:25 | NUR ---
PATIENT FINISHED WITH DINNER AND NOW LAYING IN BED WATCHING TV.
--- NOTE | 2023-12-16 19:30 | NUR ---
SHIFT REPORT RECEIVED. PATIENT RESTING IN BED WATCHING TV. VS STABLE. LEVO AT 1 MCG/MIN. CALL LIGHT IN REACH. PATIENT DENIED NEEDS.
--- NOTE | 2023-12-16 20:45 | NUR ---
PATIENT PROVIDED EVENING MEDS. PRN TYLENOL FOR GENERALIZED ACHES/PAINS. PATIENT DECIDED TO TAKE SENNA AND HOLD MIRALAX UNTIL MORNING. PATIENT IS AAOX4. COARSE COUGH NOTED, WHICH IS CHRONIC FOR PATIENT. TOLERATING 3L NC. LUNG SOUNDS ARE COARSE IN RG UPPER LOBES, AND DIM IN THE BASES. PATIENT DENIED GI UPSET, ABD IS SOFT AND BOWEL SOUNDS ACTIVE. BURRIS IS DRAINING SMALL AMOUNTS OF DARK RED URINE. SAMPLE COLLECTED PER ORDER. SITE FLUSHED WITH 20 MLS NS TO REMOVE SEDIMENT AND POSSIBLE CLOTS. PATIENT DENIED PAIN DUE TO BURRIS BUT DID REQUEST BURRIS BE DC'd SOON POSSIBLE, WILL DISCUSS WITH MD. PATIENT HAS 1+ PITTING EDEMA IN RG LOWER EXTREMITITES. SCD'S PLACED ON PATIENT. CENTRAL LINE FLUSHED AND RETURNS BLOOD IN ALL THREE LUMENS. LEVO CONTINUES AT 1 MCG/MIN. BP ARE SOFT; SEE VS CHARTING. PATIENT DENIED OTHER NEEDS. LIGHTS WERE DIMMED AND CALL LIGHT IN REACH.
--- NOTE | 2023-12-16 21:00 | NUR ---
discussed mesfin with ; verbal order to dc. Mesfin now DC'd; patient tolerated well. Agrees to call for assist to the bathroom. Call light in place and bed alarm active. lights dimmed and tv off. Patient prepared for sleep.
[2023-12-16 21:03] LABS: BILIRUBIN, URINE NEGATIVE (negative); BLOOD/HGB, URINE LARGE (Negative); KETONE, URINE NEGATIVE (Negative); LEUK ESTERASE, URINE TRACE (negative); NITRITE, URINE POSITIVE (negative)
[2023-12-16 21:07] LABS: BACTERIA, URINE 2+ /hpf (negative); CASTS, URINE NONE SEEN \\lpf; CRYSTALS, URINE NONE SEEN (0-1+); EPITHELIAL CELLS, URINE SQUAMOUS 1+ /lpf (0-1+); RED BLOOD CELLS, URINE >50 /hpf (0-5); REFLEX CULTURE, URINE Yes (No)
[2023-12-16 21:08] LABS: COLLECTION TYPE, URINE CLEAN CATCH
[2023-12-16] MEDS ORDERED: CEFTRIAXONE/SODIUM CHLORIDE 2 GM/100 ML PIGGYBACK IV SCH (21:33)
[2023-12-17] VITALS (47 sets, daily range): BP systolic 81–113; BP diastolic 35–63
--- NOTE | 2023-12-17 00:30 | NUR ---
PATIENT APPEARS RESTFUL IN BED. TOLERATING 3L NC. LEVO AT 2 MCG/MIN. CERNTRAL LINE SITE WNL. CALL LIGHT IN REACH.
--- NOTE | 2023-12-17 01:55 | NUR ---
PATIENT UP TO THE [facility] TO VOID. PATIENT IS WEAK BUT ABLE TO TRANSFER WITH MINIMAL ASSIST. PATIENT VOID, REPORTS SMALL BIT OF DISCOMFORT WITH VOIDING. PATIENT ALSO REPORTS BEING SLIGHTLY LIGHTHEADED WITH ACTIVITY. VS STABLE. TOLERATING 3L NC. LEVO AT 2 MCG/MIN. BP REMAINS SOFT; WITH SYSTOLICS IN THE HIGH 80'S AND 90'S. PATIENT RETURNED TO BED. CALL LIGHT IN REACH.
[2023-12-17 05:19] LABS: BASOPHILS 0.4 % (0-2); EOSINOPHILS 0.7 % (0-6); HEMATOCRIT 25.9 % (35.0-50.0); HEMOGLOBIN 8.6 g/dL (12.0-18.0); LYMPHOCYTES 16.6 % (24-44); MCH 38.3 (27-36); MCHC 33.1 g/dl (30-36); MCV 115.6 fl (81-99); MONOCYTES 9.1 % (0-12); NEUTROPHILS 73.2 % (39-80); PLATELET COUNT 160 K/uL (140-440); RBC 2.24 M/ul (4.3-5.7); RDW 26.7 (10.5-15.0)
--- NOTE | 2023-12-17 05:30 | NUR ---
LABS DRAWN FROM PATIENT CENTRAL LINE. LEVO TURNED OFF AT THIS TIME. PATIENT REPORTS FEELING WELL RESTED AND DENIED ANY CONCERNS. TOLERATING 3L NC. VS STABLE. SOFT BUT STABLE BP. HR 90'S, SR WITH FREQUENT PVCs. PATIENT DENIED NEEDS. CALL LIGHT IN REACH.
[2023-12-17 05:38] LABS: ALBUMIN 2.7 g/dL (3.4-5.0); ALBUMIN/GLOBULIN RATIO 0.96 (1.1-2.4); ANION GAP 4.6 (7-21); BILIRUBIN, TOTAL 0.3 ng/dL (0.2-1.0); BUN/CREATININE RATIO 21.05 (6.0-28.6); CALCIUM 8.4 mg/dL (8.5-10.1); CREATININE, SERUM 0.95 mg/dL (0.55-1.02); MAGNESIUM 2.1 mg/dL (1.8-2.4); PHOSPHORUS, INORGANIC 3.6 mg/dL (2.5-4.9); POTASSIUM 4.6 mmol/L (3.5-5.1); PROTEIN, TOTAL 5.5 g/dL (6.4-8.2)
--- NOTE | 2023-12-17 06:25 | NUR ---
PATIENT UP TO THE BSC TO HAVE BM. PATIENT VOIDED AND HAD LARGE SOFT BM. PATIENT ASSISTED WITH [facility]. RETURNED TO BED. DENIED FEELING LIGHTHEADED DURING THIS ACTIVITY. VS STABLE. CALL LIGHT IN REACH.
--- NOTE | 2023-12-17 07:00 | NUR ---
REPORT RECEIVED FROM BIOLOGIST RN ONDINA. PATIENT IS LYING IN BED WITH EYES CLOSED AND RESPIRATIONS ARE EVEN AND UNLABORED. PATIENT WITH THE NC IN PLACE. CALL LIGHT AND PERSONAL BELONGINGS ARE WITHIN REACH.
--- NOTE | 2023-12-17 08:14 | NUR ---
PATIENT VITALS OBTAINED. NURSES IN ROOM, ICE WATER GIVEN. PT HAS NO OTHER REQUESTS AT THIS TIME. CALL LIGHT WITHIN REACH.
--- NOTE | 2023-12-17 08:15 | NUR ---
0700, 0800, AND 0900 MEDICATIONS ADMINISTERED PER THE EMAR. PATIENT IS SET UP AND EATING BREAKFAST. PATIENT STATED NO FURTHER NEEDS, CALL LIGHT AND PERSONAL BELONGINGS ARE WITHIN REACH.
--- NOTE | 2023-12-17 08:45 | NUR ---
PATIENT IS LYING IN BED WITH EYES CLOSED AND RESPIRATIONS ARE EVEN AND UNLABORED UPON RN ENTERING THE PATIENTS ROOM. PATIENT IS ALERT AND ORIENTED TIMES FOUR. PATIENT RESPONDS APPROPRIATELY TO RN. PATIENT IS ON 2 L NC, THIS IS HER CHRONIC HOME DOSE. PATIENT WAS ON 3 L NC OVERNIGHT. LUNG SOUNDS ARE CLEAR BILATERALLY IN ALL LUNG HO. PATIENT WITH NO COMPLAINTS OF SOB. OCCASSIONAL COUGH NOTED. CARDIAC WITH NORMAL S1 AND S2 ON AUSCULTATION. PATIENT IS IN SINUS TACHYCARDIAC WITH OCCASSIONAL PVC'S. BILATERAL ANKLES/FEET WITH 2+ PITTING EDEMA NOTED. RADIAL AND PEDAL PULSES ARE STRONG BILATERALLY. PATIENT IS ON A 2 GRAM SODIUM DIET AND BOWEL TONES ARE ACTIVE IN ALL FOUR QUADRANTS. TRIPLE LUMEN IJ FLUSHED WITH 10 ML IN EACH PORT. PATIENT TOLERATED WELL WITH NO PAIN NOTED. PATIENT STATED NO PAIN AT THIS TIME. SENSATION INTACT WITH NO COMPLAINTS OF NUMBNESS AND TINGLING. PATIENT REMAINS LYING IN BED AND BREAKFAST TRAY REMOVED AT THIS TIME. PATIENT STATED NO FURTHER NEEDS AT THIS TIME. CALL LIGHT AND PERSONAL BELONGINGS ARE WITHIN REACH.
--- NOTE | 2023-12-17 09:25 | NUR ---
ROUNDED ON THE PATIENT AT THIS TIME. MD SAW MOST RECENT BLOOD PRESSURE WHILE IN THE ROOM. RN STARTED LEVOPHEN DRIP AT 1 MCG NOW. PATIENT STATED NO COMPLAINTS OF DIZZINESSS OR LIGHT-HEADEDNESS. PATIENT TRANSFERRED TO THE [facility] AND HAD AN UNMEASURED VOID AND LARGE SOFT/LOOSE BOWEL MOVEMENT. RN CHANGED BED LINENS AT THIS TIME. AFTER PATIENT USED THE BSC PATIENT THEN TRANSFERRED TO THE CHAIR AND TOLERATED WELL. PATIENT BLE ARE ELEVATED WITH A PILLOW UNDERNEATH THE LEGS. PATIENT STATED NO FURTHER NEEDS AT THIS TIME. CALL LIGHT AND PERSONAL BELONGINGS ARE WITHIN REACH.
[2023-12-17] MEDS ORDERED: SODIUM CHLORIDE 0.9% 1,000 ML IV SCH (09:45)
--- NOTE | 2023-12-17 10:24 | NUR ---
PATIENT IS SITTING UPRIGHT IN THE CHAIR WITH BILATERAL LOWER EXTREMITIES ELEVATED. BLINDS ARE OPEN. PATIENT EDUCATED ON STARTING MAINTENANCE FLUIDS AT THIS TIME. PATIENT EXPRESSED UNDERSTANDING. TRIPLE LUMED IJ FLUSHED WITH 10 ML NORMAL SALINE AND FLUIDS ARE INFUSING. PATIENT STATED NO FURTHER NEEDS AT THIS TIME. CALL LIGHT AND PERSONAL BELONGINGS ARE WITHIN REACH.
--- NOTE | 2023-12-17 11:09 | NUR ---
PATIENT IS SITTING UPRIGHT IN THE CHAIR WITH BILATERAL LOWER EXTREMITIES ELEVATED. PATIENT WITH THREE VISITORS IN THE ROOM AT THIS TIME. CALL LIGHT AND PERSONAL BELONGINGS ARE WITHIN REACH.
--- NOTE | 2023-12-17 12:30 | NUR ---
PATIENT IS SITTING UPRIGHT IN THE CHAIR WITH BILATERAL LOWER EXTREMITIES ELEVATED. PATIENT DAUGHTER IS SITTING ON THE COUCH. PATIENT LUNCH TRAY REMOVED AT THIS TIME. PATIENT IS ALERT AND ORIENTED TIMES FOUR. PATIENT WITH NO COMPLAINTS OF PAIN OR NUMBNESS AND TINGLING AT THIS TIME. PATIENT IS ON 2 L NC AND HAS NO COMPLAINTS OF SOB. LUNG SOUNDS ARE CLEAR IN THE UPPER LOBES WITH FAINT CRACKLES IN THE BASES. PATIENT CARDIAC WITH NORMAL S1 AND S2 ON AUSCULTATION. PATIENT IS IN SINUS RHYTHM WITH PVC'S. RADIAL AND PEDAL PULSES ARE STRONG BILATERALLY. CAPILLARY REFILL IN THE UPPER AND LOWER EXTREMITIES IS LESS THAN 3 SECONDS BILATERALLY. TRACE EDEMA NOTED AT THE BILATERAL HIPS AND THE LEFT ARM. PATIENT WITH 2+ PITTING EDEMA IN BILATERAL ANKLES AND FEET. PATIENT IS ON A 2 GRAM SODIUM DIET AND ATE 50% OF HER LUNCH. BOWEL TONES ARE ACTIVE IN ALL FOUR QUADRANTS. LAST BM WAS 12/17/23. SKIN WITH SCATTERED BRUISING NOTED AND A SCAR ON THE LEFT HIP. PATIENT WITH AN IJ TRIPLE LUMEN ON THE LEFT SIDE. LEVOPHED IS INFUSING AT 1 MCG. NS IS INFUSING AT 75 ML AN HOUR FOR A TOTAL INTAKE OF 75 ML/HR. IJ DRESSING IS CLEAN, DRY, AND INTACT. PATIENT STATED NO FURTHER NEEDS AT THIS TIME. CALL LIGHT AND PERSONAL BELONGINGS ARE WITHIN REACH.
--- NOTE | 2023-12-17 13:04 | NUR ---
PATIENT IS LYING IN THE CHAIR WITH EYES CLOSED AND RESPIRATIONS ARE EVEN AND UNLABORED. BLE ARE ELEVATED. NC IN PLACE. PATIENT FAMILY MEMBER IS SITTING ON THE COUCH. CALL LIGHT AND PERSONAL BELONGINGS ARE WITHIN REACH.
--- NOTE | 2023-12-17 14:29 | NUR ---
PATIENT IS LYING UPRIGHT IN THE CHAIR WITH BLE ELEVATED. PATIENT WITH EYES CLOSED AND RESPIRATIONS ARE EVEN AND UNLABORED. NC IN PLACE. CALL LIGHT AND PERSONAL BELONGINGS ARE WITHIN REACH.
--- NOTE | 2023-12-17 14:36 | NUR ---
FLUID DOSE COMPLETE. IV DISCONNECTED FROM TRIPLE LUMEN IJ. BLUE PORT FLUSHED WITH 10 ML NORMAL SALINE AND IS SALINE LOCKED. IV DRESSING IS CLEAN, DRY, AND INTACT. LEVOPHED IS INFUSING AT 1 MCG. PATIENT STATED NO FURTHER NEEDS AT THIS TIME. CALL LIGHT AND PERSONAL BELONGINGS ARE WITHIN REACH.
--- NOTE | 2023-12-17 15:35 | NUR ---
PATIENT IS LYING IN THE CHAIR WITH BILATERAL LOWER EXTREMITIES ELEVATED. CHG WIPE DOWN AND SHOWER CAP COMPLETE. NEW GOWN IN PLACE. PATIENT GIVEN ORANGE JUICE AND FRESH CUP OF ICE WATER AT THIS TIME. PATIENT ENCOURAGED TO DRINK FLUIDS. WHEN OFFERED TO GO BACK TO BED, PATIENT STATED SH WOULD LIKE TO STAY IN THE CHAIR. PATIENT IS ALERT AND ORIENTED TIMES FOUR. PATIENT IS ON 2 L NC. LUNG SOUNDS ARE CLEAR IN THE UPPER LOBES BILATERALLY WITH CRACKLES IN THE BASES BILATERALLY. PATIENT WITH NO COMPLAINTS OF SOB AND NOT COUGH NOTED. CARDIAC WITH NORMAL S1 AND S2 ON AUSCULTATION. PATIENT IS ON THE DIETITIAN CHIEF. PATIENT IS IN SINUS TACHYCARDIAC WITH OCCASSIONAL PVC'S. SENSATION INTACT WITH NO COMPLAINTS OF NUMBNESS AND TINGLING. RADIAL AND PEDAL PULSES ARE STRONG BILATERALLY. 2+ PITTING EDEMA NOTED IN THE BILATERAL ANKLES/FEET. TRACE EDEMA NOTED IN THE LEFT ARM AND BILATERAL HIPS. BOWEL TONES ARE ACTIVE IN ALL FOUR QUADRANTS. TRIPLE LUMEN IJ WITH LEVOPHED INFUSING AT 1 MCG IN THE WHITE PORT. SKIN WITH SCATTERED BRUISING AND SCAR ON THE LEFT HIP. TOES ARE COOL TO THE TOUCH AND PURPLE. CAPILLARY REFILL REMAINS LESS THAN 3 SECONDS. WARM BLANKETS WRAPPED AROUND THE PATIENTS FEET AT THIS TIME. PATIENT STATED NO FURTHER NEEDS, CALL LIGHT AND PERSONAL BELONGINGS ARE WITHIN REACH.
--- NOTE | 2023-12-17 16:30 | NUR ---
TRIPLE LUMEN IJ FLUSHED WITH 10 ML NORMAL SALINE IN EACH PORT. BRISK BLOOD RETURN NOTED IN WHITE AND BLUE PORTS. IJ TRIPLE LUMEN IS HEPARIN LOCKED AT THIS TIME. PATIENT TOES ARE PINK AND MORE WARM TO THE TOUCH. PATIENT WITH HER SOKS BACK ON. PATIENT DRANK THE ORANGE JUICE AND 200 ML OF WATER. PATIENT WITH NO URGE TO VOID. PATIENT EDUCATED ON THE IMPORTANCE OF VOIDING AND EXPRESSED UNDERSTANDING. PATIENT WITH THREE FAMILY MEMBERS IN THE ROOM. LEVOPHED DRIP SHUT OFF AT THIS TIME. PATIENT IS SITTING UPRIGHT IN THE CHAIR WITH BLE ELEVATED AND WITH NO FURTHER NEEDS. CALL LIGHT AND PERSONAL BELONGINGS ARE WITHIN REACH.
--- NOTE | 2023-12-17 17:25 | NUR ---
PATIENT READY TO TRANSFER BACK TO BED. PATIENT USED BEDSIDE COMMODE AND VOID 250 ML DARK YELLOW URINE. PATIENT TOLERATED WELL WITH NO COMPLAINTS OF PAIN OR BURNING ON URINATION. MARKEL RN CHARTED INTAKE AND OUTPUT VALUES. IV PUMP CLEARED OF INTAKE FLUIDS. PATIENT IS LYING IN BED AND WATCHING TV. SCD'S IN PLACE. LEVOPHED DRIP IS OFF. PATIENT STATED NO FURTHER NEEDS AT THIS TIME. DINNER TRAY REMOVED, CALL LIGHT AND PERSONAL BELONGINGS ARE WITHIN REACH.
--- NOTE | 2023-12-17 17:54 | NUR ---
BROWN PORT FLUSHED ON THE TRIPLE LUMEN IJ WITH 20 ML NORMAL SALINE. BLOOD RETURN NOTED. NASAL SPO2 MONITOR IN PLACE. PATIENT IS LYING IN BED AND WATCHING TV. PATIENT STATED NO FURTHER NEEDS AT THIS TIME. CALL LIGHT AND PERSONAL BELONGINGS ARE WITHIN REACH.
--- NOTE | 2023-12-17 18:17 | NUR ---
PATIENT IS LYING IN BED WITH EYES CLOSED AND RESPIRATIONS ARE EVEN AND UNLABORED. CALL LIGHT AND PERSONAL BELONGINGS ARE WITHIN REACH.
--- NOTE | 2023-12-17 19:30 | NUR ---
SHIFT REPORT RECEIVED. PATIENT RESTING IN BED WATCHING TV. DENIED ANY NEEDS. CALL LIGHT IN REACH.
[2023-12-17] MEDS ORDERED: MIDODRINE HCL 5 MG TAB PO ONE (19:45)
--- NOTE | 2023-12-17 20:30 | NUR ---
PATIENT PROVIDED SCHEDULED MEDS PER ORDER. PATIENT AAOX4. DENIED CONCERNS. REQUEST NOT TO TAKE BOWEL CARE MEDS DUE TO HAVING 2 BOWEL MOVEMENTS TODAY. PATIENT TOLERATING 2L NC. LUNG SOUNDS ARE CLEAR IN UPPERS, DIM IN THE BASES. PATIENT DENIED GI UPSET. 1+ EDEMA NOTED IN RG ANKLES AND FEET. SCDs IN PLACE. PATIENT VS STABLE. CENTRAL LINE FLUSHED AND RETURNED BLOOD IN DISTAL PORT; IV ABX STARTED. PATIENT DENIED ANY FURTHER NEEDS. LIGHTS DIMMED AND CALL LIGHT IN REACH.
--- NOTE | 2023-12-17 22:30 | NUR ---
PATIENT APPEARS RESTFUL IN THE BED. VS STABLE. TOLERATING 2L NC. CALL LIGHT IN REACH.
[2023-12-18] VITALS (14 sets, daily range): BP systolic 77–130; BP diastolic 34–55
--- NOTE | 2023-12-18 | NUR ---
ALLOW PATIENT TO REST. EYES CLOSED. VS STABLE. CALL LIGHT IN REACH.
--- NOTE | 2023-12-18 01:27 | NUR ---
PATIENT UP TO THE BATHROOM; SBA WITH FWW. PATIENT TOLERATED WELL. REPORTS FEELING TIRED BUT IS STEADY ON HER FEEL AND NOT DIZZY. TOLERATING 2L NC. PATIENT RETURNED TO BED. CALL LIGHT IN REACH.
--- NOTE | 2023-12-18 03:30 | NUR ---
PATIENT APPEARS TO BE RESTING COMFORTABLY. VS STABLE. CALL LIGHT IN REACH.
--- NOTE | 2023-12-18 05:33 | NUR ---
PT CALLS TO USE BSC. 1 P SBA WITH FWW TO BSC. BACK TO BED. PT TOLERATED WELL. WATER PROVIDED. PT STATES NO OTHER NEEDS. CALL LIGHT IN REACH.
--- NOTE | 2023-12-18 06:30 | NUR ---
LABS DRAWN FROM CENTRAL LINE PER ORDER. PATIENT REPORTS HAVING A GOOD NIGHTS REST AND DENIED ANY NEEDS OR CONCERNS. CALL LIGHT IN REACH.
[2023-12-18 06:58] LABS: BASOPHILS 0.3 % (0-2); EOSINOPHILS 0.7 % (0-6); HEMATOCRIT 25.1 % (35.0-50.0); HEMOGLOBIN 8.4 g/dL (12.0-18.0); LYMPHOCYTES 19.1 % (24-44); MCH 38.6 (27-36); MCHC 33.6 g/dl (30-36); MONOCYTES 8.8 % (0-12); NEUTROPHILS 71.1 % (39-80); PLATELET COUNT 162 K/uL (140-440); RBC 2.18 M/ul (4.3-5.7); RDW 26.9 (10.5-15.0)
[2023-12-18 07:12] LABS: ALBUMIN 2.7 g/dL (3.4-5.0); ANION GAP 4.7 (7-21); BILIRUBIN, TOTAL 0.3 ng/dL (0.2-1.0); BUN/CREATININE RATIO 18.88 (6.0-28.6); CALCIUM 8.7 mg/dL (8.5-10.1); CREATININE, SERUM 0.9 mg/dL (0.55-1.02); MAGNESIUM 1.8 mg/dL (1.8-2.4); POTASSIUM 4.7 mmol/L (3.5-5.1); PROTEIN, TOTAL 5.4 g/dL (6.4-8.2)
--- NOTE | 2023-12-18 07:30 | NUR ---
ELSA RECEIVED FROM ONDINA SLAUGHTER. PT RESTING IN BED WITH EYES CLOSED. HR 90'S, SPO2 94%.
--- NOTE | 2023-12-18 08:58 | NUR ---
PHYSICAL THERAPY IN TO WORK WITH PT, DAUGHTER IN TO SEE PT WELL. HR UP TO 118 WHEN PT AMBULATING.
[2023-12-18] MEDS ORDERED: MIDODRINE HCL 5 MG TAB PO SCH (09:00)
--- NOTE | 2023-12-18 10:02 | NUR ---
PT UP TO BATHROOM FOR LOOSE STOOL AND TO VOID, BACK TO SIT IN THE CHAIR. DAUGHTER LEAVING NOW, PT DROWSY AND WANTING TO TAKE A NAP.
--- NOTE | 2023-12-18 11:00 | NUR ---
PT HAS BEEN SITTING UP IN CHAIR WITH LE ELEVATED, NAPPING ON AND OFF, DENIES NEEDS. CALL LIGHT IN HAND.
--- NOTE | 2023-12-18 12:17 | NUR ---
LUNCH BROUGHT IN TO PT AND ASSESSMENT DONE, PT DENIES NEEDS AT THIS TIME. LUNGS SLIGHTLY COARSE IN THE BASES, REMAINS ON 2L/NC, RESTING HR 90-100'S.
--- NOTE | 2023-12-18 13:07 | NUR ---
PT BACK TO BED PER REQUEST. CALL LIGHT IN REACH.
--- NOTE | 2023-12-18 15:20 | NUR ---
MD IN TO SEE PT AND DISCUSS PLAN OF CARE. PT HAS NO NEEDS AT THIS TIME.
--- NOTE | 2023-12-18 15:49 | NUR ---
DAUGHTER IN TO SEE PT.
--- NOTE | 2023-12-18 19:30 | NUR ---
SHIFT REPORT RECEIVED. PATIENT RETURNED FROM THE BATHROOM WITH ASSIST FROM SABRINA SLAUGHTER. PATIENT ASSISTED TO REPOSITION FOR COMFORT IN THE BED. PATIENT DENIED NEEDS OR CONCERNS. CALL LIGHT IN REACH.
--- NOTE | 2023-12-18 21:30 | NUR ---
PATIENT PROVIDED WITH SCHEDULED DANIEL. VS STABLE. TOLERATING 2L NC. PATIENT LUNG SOUNDS ARE CLEAR IN THE UPPER LOBES, SLGIHTLY COARSE IN BASES. PATIENT HAS A LITTLE HEART BURN AND OCCATIONAL COUGH. HOB ELEVATED PER PATIENT REQUEST. CENTRAL LINE FLUSHED, 10ML NS IN ALL 3 LUMENS. ALL LUMENS RETURN BLOOD, BROWN PORT LESS BRISK THAN OTHERS. IV ABX STARTED PER ORDER. PATIENT DENIED FURTHER NEEDS. CALL LIGHT IN REACH. LIGHTS DIMMED.
--- NOTE | 2023-12-19 | NUR ---
PATIENT APPEARS TO BE RESTING COMFORTABLE. TOLERATING 2L NC. CALL LIGHT IN REACH.
--- NOTE | 2023-12-19 02:19 | NUR ---
patient up to the bathroom to void. patient tolerated well using fww. patient returned to bed and assisted to position for comfort. denied further needs or concerns. call light in reach.
--- NOTE | 2023-12-19 04:00 | NUR ---
PATIENT RESTING IN BED. EYES CLOSED. CALL LIGHT IN REACH.
[2023-12-19 06:22] VITALS: BP 116/52
--- NOTE | 2023-12-19 06:26 | NUR ---
PATIENT VS STABLE. TOLERATING 2L NC. PATIENT DENIED ANY NEEDS OR CONCERNS. CALL LIGHT IN REACH.
--- NOTE | 2023-12-19 07:30 | NUR ---
REPORT RECEIVED FROM ONDINA SLAUGHTER. PT IS RESTING IN BED WITH EYES CLOSED.
[2023-12-19 08:30] VITALS: BP 113/52
--- NOTE | 2023-12-19 08:30 | NUR ---
BREAKFAST BROUGHT IN TO PT, PT REPOSITIONED UP IN BED, DENIES FURTHER NEEDS. ANTICITPATING GOING HOME TODAY.
--- NOTE | 2023-12-19 09:17 | NUR ---
IN TO SEE PT
[2023-12-19] MEDS ORDERED: MIDODRINE HCL5 MG PO (09:23)
[2023-12-19] MEDS ORDERED: LASIX40 MG PO (09:24)
--- NOTE | 2023-12-19 09:50 | NUR ---
In to see Luann this a.m. and discuss her discharge, current plan for today is to discharge to [facility]. Luann is in bed with the head of the bed raised, she is currently watching t.v., she answers questions appropriately, and she is oriented to person, place, and time. Her upcoming discharge to [facility] is discussed, Luann is agreeable to this plan and feels "ready to go when the doctor says it's o.k." IMM letter is explained to Luann, questions are answered, and Luann signs the IMM letter without hesitation. 4 hour wait time is waived should Luann be discharged prior to 4 hours from the time that she signed the letter. A signed copy of the letter is also prvided for Luann.
--- NOTE | 2023-12-19 10:00 | NUR ---
PT TO DO RT EVAL FOR HOME O2, OUT TO AMBULATE IN DIET[facility] DOING WELL, STEADY WITH FWW.
--- NOTE | 2023-12-19 10:32 | NUR ---
VISITED DURING SPIRITUAL CARE ROUNDS. PT APPEARED TO BE SLEEPING. DID NOT DISTURB. PROVIDED PRAYER.
--- NOTE | 2023-12-19 11:00 | NUR ---
PT UP TO SIT IN CHAIR, WAITING FOR DAUGHTERS TO FINISH ARRANGING THINGS AT [facility]. IJ TAKEN OUT, NO COMPLICATIONS, TIP INTACT.
[2023-12-19 11:10] VITALS: BP 107/50
--- NOTE | 2023-12-19 11:24 | NUR ---
PATIENT HAS HOME OXYGEN BUT UNSURE OF COMPANY. SPOKE WITH [facility] AND [facility], NEITHER HAVE HER ON SERVICE. CALLED DAUGHTER, YARI, NO ANSWER. MESSAGE LEFT. ORDERS FAXED TO [facility].
--- NOTE | 2023-12-19 12:15 | NUR ---
PT SITTING UP IN CHAIR TO EAT LUNCH, HAS GOTTEN DRESSED AND JUST WAITING FOR HER RIDE.
--- NOTE | 2023-12-19 14:15 | NUR ---
D/C INSTRUCTIONS GIVEN TO PT AND HER DAUGHTERS AND SON IN [place] AND THEY ALL HAVE QUESTIONS ANSWERED AND VERBALIZE UNDERSTANDING. THEY WERE GIVEN A [facility] TANK TO GO HOME WITH, ESCORTED OUT WITH BOLIVAR RN TO GO TO [facility].
== END 2023-12-19 14:15 | disposition home or self-care (01) | DRG 291 ==
LOC: ED 14:05 → CCU 19:39
PROVIDERS: Emergency Medicine; Family Medicine; ADMIT Student in an Organized Health Care Education/Training Program; ATTEND Student in an Organized Health Care Education/Training Program
PROC: 02HV33Z Insertion of Infusion Device into Superior Vena Cava, Percutaneous Approach (ICD-10-PCS; principal; 2023-12-12)
PROC: B547ZZA Ultrasonography of Left Subclavian Vein, Guidance (ICD-10-PCS; 2023-12-12)
PROC: 3E033XZ Introduction of Vasopressor into Peripheral Vein, Percutaneous Approach (ICD-10-PCS; 2023-12-12)
DX: I50.23 Acute on chronic systolic (congestive) heart failure (principal); R57.0 Cardiogenic shock; C56.9 Malignant neoplasm of unspecified ovary; J96.10 Chronic respiratory failure, unspecified whether with hypoxia or hypercapnia; C85.90 Non-Hodgkin lymphoma, unspecified, unspecified site; N17.9 Acute kidney failure, unspecified; E87.1 Hypo-osmolality and hyponatremia; Z66 Do not resuscitate; J44.9 Chronic obstructive pulmonary disease, unspecified; E03.9 Hypothyroidism, unspecified; E78.00 Pure hypercholesterolemia, unspecified; F17.210 Nicotine dependence, cigarettes, uncomplicated; F41.9 Anxiety disorder, unspecified; C50.912 Malignant neoplasm of unspecified site of left female breast; E83.42 Hypomagnesemia; Z90.12 Acquired absence of left breast and nipple; Z95.828 Presence of other vascular implants and grafts
CPT/HCPCS: 36415; 36556; 36592; 51702; 71045; 73502; 80048; 80053; 81001; 83735; 83880; 84100; 84484; 85025; 85060; 87077; 87088; 87186; 93005; 93010; 93306; 94761; 97110; 97162; 97530; 99284-25; A9270; J0696; J1250; J1644; J1940; J3475; J7030; P9047; Q0177